=== PATIENT | male | born 1965 | race Caucasian/White ===

== ENCOUNTER 2017-07-07 19:38 | Observation (INO) | payer BC ==
[2017-07-07 19:57] LABS: Bilirubin Negative (Negative); Blood, Urine Negative (Negative); Glucose, Urine (Dipstick) Negative (Negative); Ketone, Urine Negative (Negative); Nitrite Negative (Negative); Protein, Urine (Dipstick) Negative (Neg-Trace); Urobilinogen 0.2 mg/dL (0.2-1.0)
[2017-07-07 20:21] LABS: #Basophils 0.1 thou/uL (0.0-0.2); #Eosinphils 0.1 thou/uL (0.0-0.7); #Lymphocytes 1.8 thou/uL (1.20-3.40); #Monocytes 1.2 thou/uL (0.11-0.59); #Neutrophils 12.6 thou/uL (1.40-6.50); %Basophils 0.4 % (0.0-1.0); %Eosinophils 0.5 % (0.0-10.0); %Lymphocytes 11.5 % (21.0-51.0); %Monocytes 7.9 % (0.0-10.0); Hematocrit 43.6 % (42.0-52.0); Mean Platelet Volume 7.1 fL (7.4-10.4); Red Blood Cell (RBC) Count 4.71 mill/uL (4.70-6.10); White Blood Cell (WBC) Count 15.8 thou/uL (4.8-10.8)
[2017-07-07 20:43] LABS: ALT (SGPT) 43 U/L (8-55); AST (SGOT) 72 U/L (5-34); Alkaline Phosphatase 74 U/L (40-150); Anion Gap 12 mmol/L (10-20); BUN (Urea Nitrogen) 17 mg/dL (8.4-25.7); Bilirubin, Total 0.3 mg/dL (0.2-1.2); Calc. Creatinine Clearance 0 mL/min (70-130); Carbon Dioxide 29 mmol/L (22-29); Chloride 103 mmol/L (98-107); Estimated GFR-MDRD 76; Globulin 2.9 g/dL (2.4-3.5); Protein, Total 7.3 g/dL (6.0-8.3)
[2017-07-07] MEDS ORDERED: Morphine 4 MG/ML VIAL ONE ×2 (21:01→22:29)
[2017-07-07 21:26] LABS: Troponin I Less than 0.010 ng/mL (< 0.028)
[2017-07-07] MEDS ORDERED: Fentanyl 100 MCG/2 ML VIAL ONE (22:25)
[2017-07-07] MEDS ORDERED: Piperacillin/Tazobactam 3.375 GM in Sodium Chloride 0.9% 100 ML IVPB SCH (22:30)
[2017-07-07] MEDS ORDERED: Bupivacaine/Epinephrine 0.25% 30 ML VIAL ONE (22:34)
[2017-07-07] MEDS ORDERED: Ondansetron HCl/PF 4 MG/2 ML Vial ONE (23:04)
[2017-07-07] MEDS ORDERED: Ketorolac Tromethamine 30 MG/ML VIAL ONE (23:04)
[2017-07-07] MEDS ORDERED: Dexamethasone 20 MG/5 ML VIAL ONE (23:04)
[2017-07-07] MEDS ORDERED: Propofol 200 MG/20 ML VIAL ONE (23:04)
[2017-07-07] MEDS ORDERED: ePHEDrine/0.9% NaCl/PF SYRINGE 50 mg/10 ml ONE (23:04)
[2017-07-07] MEDS ORDERED: PHENYLEPHRINE-NS 100 MCG/ML 10 ML SYRINGE ONE (23:04)
[2017-07-07] MEDS ORDERED: Succinylcholine Chloride 20 MG/ML 10 ml SYRINGE FS ONE (23:04)
[2017-07-07] MEDS ORDERED: Lidocaine 2% PF 10 ML AMP (For Epidural Use) ONE (23:04)
[2017-07-07] MEDS ORDERED: Glycopyrrolate 0.2 MG/ML 5 ML SYRINGE ONE (23:04)
--- NOTE | 2017-07-07 23:29 | CT ---
NONCONTRAST ABDOMEN AND PELVIC CT 07/07/17 No prior comparison. CLINICAL HISTORY: Epigastric pain. FINDINGS: No urolithiasis or obstructive uropathy. There is prominent inflammation of the right lower quadrant likely on the basis of perforated appendicitis given the degree of inflammatory fat stranding and fr ee fluid. There are mildly enlarged lymph nodes that are likely reactive in etiology. No disseminated free air or drainable abscess. There is a mesenteric calcification anterior to the liver within the right upper quadrant. Mild vascular calcifications are present. There is colonic diverticulosis. Imag ed lung bases reveal mild volume loss. No acute osseous pathology is demonstrated. IMPRESSION: 1. Limited exam, although findings indicate perforated appendicitis with inflammation and free f luid of the right lower quadrant. No drainable abscess. Recommend urgent surgical consultation. 2. Additional details are described above. POS: [facility]
[2017-07-07] MEDS ORDERED: HYDROmorphone 2 MG/ML VIAL SLOW IVP PRN (23:46)
[2017-07-07] MEDS ORDERED: Promethazine HCl 25 MG/ML VIAL IM PRN (23:46)
[2017-07-07] MEDS ORDERED: Promethazine HCl 25 MG/ML VIAL SLOW IVP PRN (23:46)
[2017-07-07] MEDS ORDERED: Ondansetron HCl/PF 4 MG/2 ML Vial IVP PRN (23:46)
[2017-07-08] MEDS ORDERED: Fentanyl 100 MCG/2 ML VIAL ONE (00:18)
--- NOTE | 2017-07-08 01:03 | HP ---
CHIEF COMPLAINT: Epigastric pain. HISTORY OF PRESENT ILLNESS: This is a 51-year-old male with a history of just not feeling well over the last few days, started having some upper abdominal pain earlier today, is associated with nausea, no vomiting, no change in stools, no sick contacts. Seen in the emergency department where he had d iffuse mild abdominal pain, mostly epigastric discomfort. CT scan reveals acute appendicitis with ev idence of perforation. Denies history of inflammatory bowel disease. No chronic abdominal pain. Pa in is described as 8/10 in the epigastric area. He said it is tender when people push in his right l ower quadrant. PAST MEDICAL HISTORY: Include dyslipidemia, sleep apnea, asthma. PAST SURGICAL HISTORY: Bilateral inguinal hernia as a child. MEDICATIONS: Medicines taken daily, statin drug. ALLERGIES: No known drug allergies. SOCIAL HISTORY: No smoking, alcohol, or other drugs. REVIEW OF SYSTEMS: Ten-system review of systems otherwise negative unless described above. PHYSICAL EXAMINATION: HEENT: Sclerae are anicteric. Oropharynx clear. NECK: No lymphadenopathy. CHEST: Clear. HEART: Regular rate and rhythm. ABDOMEN: Soft, tender right lower quadrant, localized guarding, no rebound, no abdominal inguinal he rnias. EXTREMITIES: No ischemia or edema to extremities. LABORATORY AND X-RAY FINDINGS: No significant abnormalities. CT scan reveals evidence of acute perf orated appendicitis. ASSESSMENT: Perforated appendicitis. PLAN: Laparoscopic appendectomy. Risks, benefits, alternatives discussed. He gives consent. We wi ll do this today.
[2017-07-08] MEDS ORDERED: Ketorolac Tromethamine 30 MG/ML VIAL IVP PRN (01:08)
[2017-07-08] MEDS ORDERED: Ondansetron HCl/PF 4 MG/2 ML Vial IVP PRN (01:08)
[2017-07-08] MEDS ORDERED: hydrALAZINE 20 MG/ML VIAL SLOW IVP PRN (01:08)
[2017-07-08] MEDS ORDERED: Promethazine HCl 25 MG/ML VIAL IM PRN (01:08)
[2017-07-08] MEDS ORDERED: D5 1/2 NS w/20 mEq KCL 1,000 ML IV SCH (01:08)
[2017-07-08] MEDS ORDERED: HYDROcodone/Acetaminophen 10/325 mg Tablet PO PRN (01:08)
[2017-07-08] MEDS ORDERED: Dextrose 50% Abboject 50 ML SYRINGE SLOW IVP PRN (01:08)
[2017-07-08] MEDS ORDERED: Dextrose 5% in Water 1,000 ML IV PRN (01:08)
[2017-07-08] MEDS ORDERED: Morphine 4 MG/ML VIAL SLOW IVP PRN ×2 (01:08)
[2017-07-08 01:43] VITALS: BMI 45.8
[2017-07-08] MEDS ORDERED: Piperacillin/Tazobactam 3.375 GM in Sodium Chloride 0.9% 100 ML IVPB SCH (02:00)
[2017-07-08] MEDS: Piperacillin/Tazobactam 3.375 GM in Sodium Chloride 0.9% 100 ML IVPB SCH ×2 (03:39→09:32)
[2017-07-08] MEDS: HYDROcodone/Acetaminophen 10/325 mg Tablet PO PRN ×2 (03:39→09:37)
[2017-07-08] MEDS: Sodium Chloride 0.9% 1,000 ML IV SCH ×2 (03:40→09:32)
--- NOTE | 2017-07-08 08:41 | OP ---
DATE OF PROCEDURE: 07/07/2017 PREOPERATIVE DIAGNOSIS: Acute appendicitis. POSTOPERATIVE DIAGNOSIS: Acute appendicitis. PROCEDURE: Laparoscopic appendectomy. SURGEON: Cristóbal Churchill M.D. ANESTHESIA: General. ESTIMATED BLOOD LOSS: Minimal. COMPLICATIONS: None. SPECIMEN: Appendix. FINDINGS: Appendicitis. TECHNIQUE: The patient was taken to the operating room and placed supine on the table. After genera l anesthetic was obtained, the abdomen was prepped and draped in a sterile fashion. A Pham had been placed. The curved incision made below the umbilicus. Cautery was used to dissect down to and scor e the fascia. The abdominal cavity was entered bluntly using a Kathleen clamp. Holding stitch of PDS w as placed on each side of the fascia. Katey trocar was placed. High-flow pneumoperitoneum was obta ined. A suprapubic 5-mm port and a left lower quadrant 5-mm port were placed under direct visualizat ion. The cecum was rolled over to reveal acute appendicitis. It was retrocecal and very stuck poste rior consistent with chronic appendicitis. A window was made at the base of the appendix. The lapar oscopic stapler was first fired across the base of the appendix. A few reloads were fired along the long mesentery where it was affixed to the lateral and posterior side of the colon. It was removed i n its entirety, placed in an Endo catch bag and brought out through the Katey. A few bleeders on th e staple line were cauterized. There was no injury to any intraabdominal structures. No evidence of perforation or purulence. The abdomen was irrigated using sterile solution until returns were clear . All port sites were infiltrated using local anesthetic. All ports were removed under camera visua lization. Pneumoperitoneum was let down. PDS was used to close the fascial defect below the umbilic us. All incisions were irrigated and closed using 4-0 Monocryl and Dermabond. The patient went to [facility] in stable condition. All instrument counts, needle counts, and lap counts were correct.
[2017-07-08] MEDS ORDERED: Famotidine 20 MG TAB PO SCH (09:00)
[2017-07-08] MEDS ORDERED: Famotidine/PF 20 mg/2ml Vial SLOW IVP SCH (09:00)
[2017-07-08] MEDS ORDERED: FLU VACC QS2017-18 36 mo. & older 0.5 ML SYRINGE IM ONE (09:00)
[2017-07-08 09:04] VITALS: BP 118/73; TEMP 98.2
--- NOTE | 2017-07-08 12:55 | DIS ---
DATE OF ADMISSION: 07/07/2017 DATE OF DISCHARGE: 07/08/2017 ADMISSION DIAGNOSIS: Acute appendicitis. DISCHARGE DIAGNOSIS: Acute appendicitis. PROCEDURES: Laparoscopic appendectomy by Dr. Churchill without complication. CONDITION AT DISCHARGE: Improved. STAFF: Dr. Churchill. NEW MEDICINES: At discharge include Augmentin, Zofran and [place]. FOLLOWUP: The patient will follow up with me in 2 weeks. On postop day #1, the patient was doing we ll, tolerating the food. He is discharged to home. Follow up with me in 2 weeks.
== END 2017-07-08 12:14 | disposition home or self-care (01) ==
LOC: ERS 19:38 → SDC/OP 23:01 → INTOOBSV 07-08 01:04 → SURG B 07-08 01:04
PROVIDERS: ADMIT Surgery; ATTEND Surgery
PROC: 0DTJ4ZZ Resection of Appendix, Percutaneous Endoscopic Approach (ICD-10-PCS; principal; 2017-07-07)
DX: K35.80 Unspecified acute appendicitis (principal); E78.5 Hyperlipidemia, unspecified; G47.30 Sleep apnea, unspecified; J45.909 Unspecified asthma, uncomplicated; Z79.899 Other long term (current) drug therapy
CPT/HCPCS: 36415; 74176; 80053; 81003; 82553; 83690; 84484; 85025; 88304; 90471; 90682; 93005; 96361; 96366; 96374; 96375; 96376; G0008; G0378; J1100; J1885; J2001; J2270; J2405; J2543; J2704; J3010; J7050; Q2036

== ENCOUNTER 2017-07-17 12:25 | Emergency (ER) | payer BC ==
[2017-07-17 12:57] LABS: #Basophils 0.1 thou/uL (0.0-0.2); #Eosinphils 0.1 thou/uL (0.0-0.7); #Lymphocytes 1.4 thou/uL (1.20-3.40); #Monocytes 0.7 thou/uL (0.11-0.59); #Neutrophils 7.8 thou/uL (1.40-6.50); %Basophils 1.2 % (0.0-1.0); %Lymphocytes 13.9 % (21.0-51.0); %Monocytes 7.1 % (0.0-10.0); Hematocrit 37.5 % (42.0-52.0); Mean Platelet Volume 6.4 fL (7.4-10.4); White Blood Cell (WBC) Count 10.2 thou/uL (4.8-10.8)
[2017-07-17 13:07] LABS: Lactic Acid - Sepsis 0.9 mmol/L (0.5-2.2)
[2017-07-17 13:11] LABS: ALT (SGPT) 35 U/L (8-55); AST (SGOT) 33 U/L (5-34); Alkaline Phosphatase 85 U/L (40-150); Anion Gap 14 mmol/L (10-20); BUN (Urea Nitrogen) 15 mg/dL (8.4-25.7); Bilirubin, Total 0.7 mg/dL (0.2-1.2); CK (CPK) 199 U/L (30-200); Calc. Creatinine Clearance 0 mL/min (70-130); Calcium 9.6 mg/dL (7.8-10.44); Carbon Dioxide 25 mmol/L (22-29); Chloride 104 mmol/L (98-107); Estimated GFR-MDRD Greater than 90; Globulin 3.2 g/dL (2.4-3.5); Protein, Total 7.6 g/dL (6.0-8.3)
[2017-07-17 13:23] LABS: Lipase 22 U/L (8-78)
[2017-07-17 14:50] LABS: Bilirubin Negative (Negative); Blood, Urine Negative (Negative); Glucose, Urine (Dipstick) Negative (Negative); Ketone, Urine Negative (Negative); Nitrite Negative (Negative); Protein, Urine (Dipstick) Negative (Neg-Trace); Urobilinogen 0.2 mg/dL (0.2-1.0)
--- NOTE | 2017-07-17 15:34 | CT ---
CTA THORAX WITH CONTRAST: 07/17/17 (Computed Tomographic Angiography, chest(noncoronary) with contrast material, and image postprocessin g) (PE protocol) HISTORY: 51-year-old male with chest pain. TECHNIQUE: IV injection of iodinated contrast: 100 mL Isovue 370 Scan acquisition timing attempted to coincide with iodinated contrast bolus reaching maximal density in pulmonary arteries. 3D MIP reconstructions. FINDINGS: There are streaky pulmonary densities consistent with subsegmental atelectasis or scar at the posteri or bases of the bilateral lower lobes. Otherwise, the rest of the lungs are clear. No thoracic aortic aneurysm or dissection. No pulmonary thromboembolism. No mediastinal or hilar lymphadenopathy. No pl eural effusion, cardiomegaly, pericardial effusion or pneumothorax. IMPRESSION: 1. Nonspecific mild pulmonary densities at the posterior, dependent portions of the lower lobes. 2. Otherwise normal. jn[] POS: [facility]
--- NOTE | 2017-07-17 15:42 | CT ---
CT ABDOMEN AND PELVIS WITH IV AND ORAL CONTRAST 07/17/17 HISTORY: Abdominal pain. recent appendectomy. COMPARISON: 07/07/17 FINDINGS: There is mild atelectasis at each lung base. The liver, spleen, kidneys, adrenal glands and pancreas have a normal CT appearance. Nonspecific lymph nodes are scattered about the retroperitoneum and mese ntery. Urinary bladder is unremarkable. Diverticula arise from the colon. Postoperative changes of the right lower quadrant are now evident. A well circumscribed fairly homogeneous oval lesion at the postoperative location measures up to 10.6 cm length x 7.1 cm width x 3.8 cm depth. No enhancing rim or drainable fluid collection is reliably demonstrated. Small amount of free fluid is noted within the dependent portion of the pelvis. There a re degenerative changes of the lumbar spine. IMPRESSION: 1. Resolving postoperative fluid at the postoperative bed right lower quadrant. No drainable abs cess is apparent. 2. Diverticulosis. No evidence of diverticulitis. POS: [facility]
== END 2017-07-17 15:35 | disposition home or self-care (01) ==
LOC: SCSER 12:25
DX: G89.18 Other acute postprocedural pain (principal); R10.9 Unspecified abdominal pain; E78.5 Hyperlipidemia, unspecified; J45.909 Unspecified asthma, uncomplicated; F41.9 Anxiety disorder, unspecified; F32.9 Major depressive disorder, single episode, unspecified; Z79.899 Other long term (current) drug therapy
CPT/HCPCS: 71275; 74177; 80053; 81003; 82550; 83605; 83690; 85025; 85379; 96360